=== PATIENT | female | born 1975 | race Hispanic/Latino ===

== ENCOUNTER 2020-12-28 11:19 | Emergency (ER) | payer SELFPAY ==
[2020-12-28 11:45] LABS: Urine Blood Negative (Negative); Urine Glucose Negative (Negative); Urine Protein Negative (Negative); Urine Specific Gravity 1.015 (1.005-1.030)
[2020-12-28 12:20] LABS: Urine Specific Gravity/Preg 1.015 (1.005-1.030)
[2020-12-28] MEDS ORDERED: FAMOTIDINE 20 MG/2 ML VIAL IV ONE (12:44)
[2020-12-28] MEDS ORDERED: METHYLPREDNISOLONE 125 MG INJ ONE (12:44)
[2020-12-28] MEDS ORDERED: DIPHENHYDRAMINE 50 MG/ML VIAL ONE (12:44)
[2020-12-28 12:45] LABS: Absolute Lymphocytes (CBC) 0.8 K/uL (0.7-4.9); Basophils % 0.4 % (0-1.3); Hematocrit 39.2 % (36.0-45.0); Lymphocytes % 14.7 % (15.3-44.8); MPV 9.1 fL (7.6-11.3)
[2020-12-28 13:07] LABS: BUN Blood Urea Nitrogen 5 mg/dL (7-18); Bicarbonate 25 mmol/L (21-32); Glucose Level 94 mg/dL (74-106); Potassium 3.8 mmol/L (3.5-5.1); Sodium Level 138 mmol/L (136-145)
--- NOTE | 2020-12-28 13:49 | ER ---
Nurse's Notes [facility] [place] Name: Kiah Flynn Age: 45 yrs Sex: Female : 1975 Arrival Date: 12/28/2020 Time: 11:21 Bed 5 Private MD: Diagnosis: Idiopathic urticaria;Angioneurotic edema Presentation: 12/28 11:26 Chief complaint: Patient states: Covid+ 12/23/2020. Here for swelling of face and mouth, ca1 rashes all over x 3 days. Reports a little difficulty breathing and swallowing. Coronavirus screen: Client reports previous positive COVID test result. Date of collection: December 23, 2020 Staff notified of need for isolation. Ebola Screen: Patient negative for fever greater than or equal to 101.5 degrees Fahrenheit, and additional compatible Ebola Virus Disease symptoms Patient denies exposure to infectious person. Patient denies travel to an Ebola-affected area in the 21 days before illness onset. No symptoms or risks identified at this time. Initial Sepsis Screen: Does the patient meet any 2 criteria? No. Patient's initial sepsis screen is negative. Does the patient have a suspected source of infection? No. Patient's initial sepsis screen is negative. Risk Assessment: Do you want to hurt yourself or someone else? Patient reports no desire to harm self or others. Onset of symptoms was December 28, 2020. 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 Flu vaccine is not up to date. - Social history:: Smoking status: Patient denies any tobacco usage or history of. Screenin:34 Abuse screen: Denies threats or abuse. Denies injuries from another. Nutritional sv screening: No deficits noted. Tuberculosis screening: No symptoms or risk factors identified. Fall Risk None identified. Assessment: 12:41 General: Appears in no apparent distress. comfortable, well groomed, Behavior is calm, ph cooperative, appropriate for age. Pain: Denies pain. Neuro: Level of Consciousness is awake, alert, obeys commands, Oriented to person, place, time, situation. Cardiovascular: Capillary refill < 3 seconds in bilateral fingers Patient's skin is warm and dry. Respiratory: Reports shortness of breath Airway is patent Respiratory effort is even, unlabored, Respiratory pattern is regular, symmetrical, the patient has mild shortness of breath. Respiratory: angioedema noted. GI: No signs and/or symptoms were reported involving the gastrointestinal system. EENT: Reports difficulty swallowing. Derm: Skin is intact, Skin is pink, warm \T\ dry. 14:32 Reassessment: Patient appears in no apparent distress at this time. Patient and/or ss family updated on plan of care and expected duration. Pain level reassessed. Patient is alert, oriented x 3, equal unlabored respirations, skin warm/dry/pink. Patient states feeling better. Patient states symptoms have improved. Vital Signs: 11:26 BP 123 / 74; Pulse 86; Resp 18 S; Temp 97.8(O); Pulse Ox 93% on R/A; Weight 63.5 kg ca1 (R); Height 5 ft. 0 in. (152.40 cm) (R); Pain 0/10; 12:45 BP 96 / 70; Pulse 65; Resp 16; Pulse Ox 96% ; sv 13:43 BP 96 / 62; Pulse 67; Resp 18; Pulse Ox 99% ; sv 11:26 Body Mass Index 27.34 (63.50 kg, 152.40 cm) ca1 ED Course: 11:21 Patient arrived in ED. rg4 11:30 Triage completed. ca1 11:30 Arm band placed on right wrist. ca1 11:34 Adela Botello, RN is Primary Nurse. sv 11:34 Patient has correct armband on for positive identification. Bed in low position. Call light in reach. 11:36 José Manuel Peña PA is PHCP. jr8 11:[address] MD is Attending Physician. jr8 11:46 Side rails up X 1. Adult w/ patient. Warm blanket given. Pulse ox on. NIBP on. mh5 11:46 Urine collected: clean catch specimen, clear. mh5 11:48 Urine --Ancillary (enter results) Sent. mh5 13:01 Basic Metabolic Panel Sent. sv 13:01 CBC with Diff Sent. sv 14:31 No provider procedures requiring assistance completed. IV discontinued, intact, ss bleeding controlled, No redness/swelling at site. Pressure dressing applied. Administered Medications: 12:33 Drug: Benadryl (diphenhydrAMINE) 25 mg Route: IVP; Site: right antecubital; ph 14:33 Follow up: Response: No adverse reaction; Marked relief of symptoms ss 12:34 Drug: SOLU-Medrol (methylPrednisoLONE) 125 mg Route: IVP; Site: right antecubital; ph 14:33 Follow up: Response: No adverse reaction; Marked relief of symptoms ss 12:34 Drug: Pepcid (famotidine) 20 mg Route: IVP; Site: left antecubital; ph 14:33 Follow up: Response: No adverse reaction; Marked relief of symptoms ss Outcome: 13:49 Discharge ordered by . chencho 14:31 Discharged to home ambulatory, with family. ss 14:31 Condition: good 14:31 Discharge instructions given to patient, Instructed on discharge instructions, follow up and referral plans. medication usage, Demonstrated understanding of instructions, follow-up care, medications, Prescriptions given X 1. 14:32 Patient left the ED. ss Signatures: Adela Botello, RN RN Mohini Toussaint RN RN José Manuel Peña PA PA jrCherelle Simmons RN RN ph Garcia, Rubi rg4 Martinez, Maria [facility] Cristina Chao RN RN ca1
--- NOTE | 2020-12-28 13:50 | EDPHYS ---
Physician Documentation [facility] Name: Kiah Flynn Age: 45 yrs Sex: Female : 1975 Arrival Date: 12/28/2020 Time: 11:21 Bed 5 Private MD: ED Physician Donavan Lane HPI: 12/28 13:53 This 45 yrs old Female presents to ER via Ambulatory with complaints of Rash. jr8 13:53 The patient's rash thought to be caused by an unknown cause. The rash is located on the jr8 back, buttocks, right leg and left leg. The rash can be described as urticarial. Onset: The symptoms/episode began/occurred suddenly. Associated signs and symptoms: Pertinent positives: swelling of lips. Severity of symptoms: At their worst the symptoms were moderate in the emergency department the symptoms are unchanged. The patient has experienced similar episodes in the past, several times. The patient has been recently seen by a physician: the patient's primary care provider, with different complaint(s). Patient stated that she has history of allergies and often gets rash and swelling for unknown reason. Started again the other day and cannot get the rash or swelling to decrease. 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 Flu vaccine is not up to date. - Social history:: Smoking status: Patient denies any tobacco usage or history of. ROS: 13:53 Eyes: Negative for injury, pain, redness, and discharge, Neck: Negative for injury, jr8 pain, and swelling, Cardiovascular: Negative for chest pain, palpitations, and edema, Respiratory: Negative for shortness of breath, cough, wheezing, and pleuritic chest pain, Abdomen/GI: Negative for abdominal pain, nausea, vomiting, diarrhea, and constipation, Back: Negative for injury and pain, MS/Extremity: Negative for injury and deformity, Neuro: Negative for headache, weakness, numbness, tingling, and seizure. 13:53 ENT: Positive for swelling of lips. 13:53 Skin: Positive for rash. Exam: 13:53 Head/Face: Normocephalic, atraumatic. Eyes: Pupils equal round and reactive to light, jr8 extra-ocular motions intact. Lids and lashes normal. Conjunctiva and sclera are non-icteric and not injected. Cornea within normal limits. Periorbital areas with no swelling, redness, or edema. Neck: Trachea midline, no thyromegaly or masses palpated, and no cervical lymphadenopathy. Supple, full range of motion without nuchal rigidity, or vertebral point tenderness. No Meningismus. Cardiovascular: Regular rate and rhythm with a normal S1 and S2. No gallops, murmurs, or rubs. Normal PMI, no JVD. No pulse deficits. Respiratory: Lungs have equal breath sounds bilaterally, clear to auscultation and percussion. No rales, rhonchi or wheezes noted. No increased work of breathing, no retractions or nasal flaring. Abdomen/GI: Soft, non-tender, with normal bowel sounds. No distension or tympany. No guarding or rebound. No evidence of tenderness throughout. Back: No spinal tenderness. No costovertebral tenderness. Full range of motion. MS/ Extremity: Pulses equal, no cyanosis. Neurovascular intact. Full, normal range of motion. Neuro: Awake and alert, GCS 15, oriented to person, place, time, and situation. Cranial nerves II-XII grossly intact. Motor strength 5/5 in all extremities. Sensory grossly intact. Cerebellar exam normal. Normal gait. 13:53 ENT: External ear(s): are unremarkable, Nose: is normal, Mouth: Lips: moist, both swollen , Oral mucosa: pink and intact, moist, Gums: pink, Tongue: is normal, Posterior pharynx: Airway: patent, Tonsils: are normal in appearance, Uvula: midline, non-edematous, no erythema, swelling, is not appreciated, erythema, is not appreciated. 13:53 Skin: rash a mild rash is noted, rash can be described as erythematous, urticarial, on the back, buttocks, right hand, left hand, right leg and left leg. Vital Signs: 11:26 BP 123 / 74; Pulse 86; Resp 18 S; Temp 97.8(O); Pulse Ox 93% on R/A; Weight 63.5 kg ca1 (R); Height 5 ft. 0 in. (152.40 cm) (R); Pain 0/10; 12:45 BP 96 / 70; Pulse 65; Resp 16; Pulse Ox 96% ; sv 13:43 BP 96 / 62; Pulse 67; Resp 18; Pulse Ox 99% ; sv 11:26 Body Mass Index 27.34 (63.50 kg, 152.40 cm) ca1 MDM: 11:36 Patient medically screened. 8 13:47 Data reviewed: vital signs, nurses notes, lab test result(s), and as a result, I will jr8 discharge patient. Data interpreted: Pulse oximetry: on room air is 99 %. Interpretation: normal. Counseling: I had a detailed discussion with the patient and/or guardian regarding: the historical points, exam findings, and any diagnostic results supporting the discharge/admit diagnosis, lab results, the need for outpatient follow up, an allergy/note specialist, to return to the emergency department if symptoms worsen or persist or if there are any questions or concerns that arise at home. Response to treatment: the patient's symptoms have markedly improved after treatment. ED course: Discussed with patient and family that since this has been a more persistent process for past couple of years. Would be beneficial to see an allergy/note specialist at this point. .Will still put her on steroids for the time being and needs to continue benadryl Q4-6 hours as well. Both patient and family good with plan and know to come back if worse . 12/28 11:44 Order name: Urine Dipstick-Ancillary; Complete Time: 11:57 EDMS 12/28 11:47 Order name: Urine --Ancillary (enter results); Complete Time: 12:32 eb 12/28 12:05 Order name: CBC with Diff [facility] 12/28 12:05 Order name: Basic Metabolic Panel [facility] 12/28 12:06 Order name: CBC with Automated Diff; Complete Time: 12:56 EDMS 12/28 12:06 Order name: Basic Metabolic Panel; Complete Time: 13:12 EDMS 12/28 12:05 Order name: IV; Complete Time: 12:33 [facility] Administered Medications: 12:33 Drug: Benadryl (diphenhydrAMINE) 25 mg Route: IVP; Site: right antecubital; ph 14:33 Follow up: Response: No adverse reaction; Marked relief of symptoms ss 12:34 Drug: SOLU-Medrol (methylPrednisoLONE) 125 mg Route: IVP; Site: right antecubital; ph 14:33 Follow up: Response: No adverse reaction; Marked relief of symptoms ss 12:34 Drug: Pepcid (famotidine) 20 mg Route: IVP; Site: left antecubital; ph 14:33 Follow up: Response: No adverse reaction; Marked relief of symptoms ss Disposition: 16:55 Co-signature as Attending Physician, Donavan Lane MD. rn Disposition Summary: 12/28/20 13:49 Discharge Ordered Location: Home jr8 Problem: new jr8 Symptoms: have improved jr8 Condition: Stable jr8 Diagnosis - Idiopathic urticaria jr8 - Angioneurotic edema jr8 Followup: jr8 - With: Private Physician - When: 2 - 3 days - Reason: Recheck today's complaints, Continuance of care, Re-evaluation by your physician Discharge Instructions: - Discharge Summary Sheet jr8 - Hives jr8 - Angioedema jr8 Forms: - Medication Reconciliation Form jr8 - Thank You Letter jr8 - Antibiotic Education jr8 - Prescription Opioid Use jr8 Prescriptions: - Medrol ([place]) 4 mg Oral Tablets, Dose Pack - take 1 tablet by ORAL route as directed - follow package instructions; 1 jr8 packet; Refills: 0, Product Selection Permitted Signatures: Dispatcher [employer] EDDonavan Norris MD MD rn Roszak, Josh, PA PA jr8 Cherelle Prince RN RN ph Acob, Cheryl, RN RN Mohini Orozco RN ss
[2020-12-28 15:00] VITALS: TEMP 97.8
[2020-12-28 15:11] VITALS: BP 96/62; O2SAT 99
== END 2020-12-28 14:32 | disposition home or self-care (01) ==
LOC: ER 11:19
DX: L50.1 Idiopathic urticaria (principal)
CPT/HCPCS: 36415; 80048; 81003; 81025; 85025; 99284; J1200; J2930